=== PATIENT | female | born 1935 | race Two or more races ===

== ENCOUNTER 2018-08-31 22:05 | Emergency (ER) | payer OTHER, MEDICAID ==
[~2018-08-31] VITALS: Ht 152.4 cm; Wt 54.0 kg
[~2018-08-31 22:05] MED LIST: ASPIR 8181 MG ORAL; ATORVASTATIN CA10 MG ORAL; LOSARTAN POTASS50 MG ORAL
[2018-08-31 22:30] VITALS: BP 219/79
--- NOTE | 2018-08-31 22:30 | NUR ---
ED Nurse Note: RECIEVED PT FROM HOME, ON GURNEY, AWAKE, ALERT AND ORIENTED X 4, PT HERE WITH C/O HAVING DIZZINESS YESTERDAY, WAS SEEN BY PMD AT CLINIC, STARTED ON MEDS BUT STATES WHEN TOOK B/P TONIGHT IT REMAINS HIGH, NO DIZZINESS OR CHEST PAIN TODAY, NO SOB OR LABORED BREATHING OR ANY OTHER COMPLAITNS OR DISCOMFORTS, PT GOWNED AND PALCED ON CARDIAC MONITORING, B/P IS ELEVATED, WILL RESUME CARE ORDERED BY MD.
--- NOTE | 2018-08-31 22:54 | Emergency Room Report ---
History of Present Illness General Chief Complaint: Hypertension Source: Patient Present Illness HPI Is an 82-year-old female with history of high blood pressure but just put on blood pressure medication yesterday. She presents with chief complaint of high blood pressure. She complaining of some dizziness and headache and took her blood pressure was high. She call her son to bring her in. Right now she has no pain. No chest pain. No nausea no vomiting. No fever chills but no focal deficit denies any other complaint. Said that her blood pressure home was running systolic 200. She felt nervous. Allergies: Coded Allergies: NO KNOWN ALLERGIES (Unverified Allergy, Unknown, 02/06/15) Patient History Past Medical History: see triage record, old chart reviewed, HTN Past Surgical History: none, other Pertinent Family History: none Social History: Denies: smoking Last Menstrual Period: n/a Now: No Immunizations: other Reviewed Nursing Documentation: PMH: Agreed; PSxH: Agreed Nursing Documentation-PMH Past Medical History: No History, Except For Hx Cardiac Problems: Yes Hx Hypertension: Yes Hx Cancer: No Hx Gastrointestinal Problems: No Hx Neurological Problems: No Review of Systems Eye: Denies: eye pain, blurred vision ENT: Denies: ear pain, nose congestion, throat swelling Respiratory: Denies: cough, shortness of breath Cardiovascular: Denies: chest pain, palpitations Gastrointestinal: Denies: abdominal pain, diarrhea, nausea, vomiting Musculoskeletal: Denies: back pain, joint pain Skin: Denies: rash Neurological: Denies: headache, numbness Endocrine: Denies: increased thirst, increased urine Hematologic/Lymphatic: Denies: easy bruising All Other Systems: negative except mentioned in HPI Physical Exam Vital Signs Date Time Temp Pulse Resp B/P (MAP) Pulse Ox O2 Delivery O2 Flow Rate FiO2 08/31/18 22:14 97.9 81 18 219/79 95 Room Air vitals with high blood pressure Sp02 EP Interpretation: reviewed, normal General Appearance: well appearing, no apparent distress, alert Head: normocephalic, atraumatic Eyes: bilateral eye PERRL, bilateral eye EOMI ENT: hearing grossly normal, normal pharynx Neck: full range of motion, supple, no meningismus Respiratory: chest non-tender, lungs clear, normal breath sounds Cardiovascular #1: regular rate, rhythm, no murmur Gastrointestinal: normal bowel sounds, non tender, no mass, no organomegaly, no bruit, non-distended Musculoskeletal: back normal, gait/station normal, normal range of motion Psychiatric: mood/affect normal Skin: warm/dry Medical Decision Making Diagnostic Impression: Primary Impression: Hypertension Qualified Codes: I10 - Essential (primary) hypertension ER Course Patient presents with high blood pressure. No evidence of endorgan damage. Blood pressure improved here. No evidence of ACS, PE, dissection to name a few. We'll discharge home. Lab Results Impression labs unremarkable Last Vital Signs Date Time Temp Pulse Resp B/P (MAP) Pulse Ox O2 Delivery O2 Flow Rate FiO2 08/31/18 22:30 97.9 74 18 219/79 98 Room Air Status: improved Disposition: HOME, SELF-CARE Condition: Stable Scripts Hydrochlorothiazide* (HYDROCHLOROTHIAZIDE*) 25 Mg Tablet 25 MG ORAL DAILY, #30 TAB Prov: Barry Ricks MD 09/01/18 Additional Instructions: Continue with your lisinopril. Take new blood pressure medication. Follow-up with your doctor in a week for recheck. Return if worse. Barry Ricks MD Aug 31, 2018 22:54
[2018-08-31 22:57] LABS: BASOPHILS % (AUTO) 0.8 % (0.0-2.0); EOSINOPHILS % (AUTO) 2.7 % (0.0-3.0); HEMATOCRIT 33.8 % (37.0-47.0); HEMOGLOBIN 11.2 G/DL (12.0-16.0); LYMPHOCYTES % (AUTO) 24.6 % (20.0-45.0); MEAN CORPUSCULAR VOLUME 91 FL (80-99); MONOCYTES % (AUTO) 8.2 % (1.0-10.0); NEUTROPHILS % (AUTO) 63.8 % (45.0-75.0); PLATELET COUNT 219 K/UL (150-450); RED BLOOD COUNT 3.71 M/UL (4.20-5.40); RED CELL DISTRIBUTION WIDTH 12.2 % (11.6-14.8); WHITE BLOOD COUNT 8.2 K/UL (4.8-10.8)
[2018-08-31 23:06] LABS: ANION GAP 8 mmol/L (5-15); BLOOD UREA NITROGEN 16 mg/dL (7-18); CALCIUM 9.5 MG/DL (8.5-10.1); CARBON DIOXIDE 26 MMOL/L (21-32); CHLORIDE 103 MMOL/L (98-107); POTASSIUM 4.6 MMOL/L (3.5-5.1); SODIUM 137 MMOL/L (136-145)
[2018-08-31 23:30] VITALS: BP 176/41
[2018-08-31 23:35] LABS: APPEARANCE,URINE CLEAR; BILIRUBIN, URINE NEGATIVE (NEGATIVE); COLOR,URINE PALE YELLOW; GLUCOSE, URINE (UA) NEGATIVE (NEGATIVE); KETONES,URINE NEGATIVE (NEGATIVE); LEUKOCYTE ESTERASE ,URINE NEGATIVE (NEGATIVE); NITRITE,URINE NEGATIVE (NEGATIVE); PH,URINE 6.5 (4.5-8.0); PROTEIN,URINE 1+ (NEGATIVE); UROBILINOGEN,URINE NORMAL MG/DL (0.0-1.0)
[2018-09-01] MEDS ORDERED: Ketorolac 30mg Inj IV ONE
[2018-09-01] MEDS ORDERED: HYDROCHLOROTHIA25 MG ORAL (00:05)
[2018-09-01 00:30] VITALS: BP 147/51
--- NOTE | 2018-09-01 00:30 | NUR ---
ED Nurse Note: PT RESTING QUIETLY IN BED,A WAKE AND ALERT, B/P MEDS EFFECTIVE, WNL AND PT HEADACHE RESOLVED, PAIN AT 0/10, PT BEING D/C TO HOME WITH FAMILY, GIVEN F/U INFO AND AFTER CARE INSTRUCTIONS, ALSO RE-VERBALIZES PROPER MEDICATION ADMINISTRATION AND S/S TO MONTIOR FOR, PT LEAVING WITH FAMILY, AMBULATORY, NO SOB OR LABORED BREATHING, DENIES CP, NAD NOTED DURING D/C TO HOME.
--- NOTE | 2018-09-01 00:51 | NUR ---
ED Nurse Note: PT D/C FROM DEPARTMENT, AWAKE, ALERT AND ORIENTED X 4, AMBULATORY WITH STEADY GAIT, NO DIZZINESS, HEADACHE OR CHEST PAIN, NO SOB OR LABORED BREATHING, IV LINE AND ARMBAND REMOVED WITHOUT COMPLICATIONS, NAD NOTED DURING D/C TO HOME.
[2018-09-01 00:52] VITALS: BP 147/51
== END 2018-09-01 00:55 | disposition home or self-care (01) ==
LOC: EMR 22:58
DX: I10 Essential (primary) hypertension (principal)
CPT/HCPCS: 36415; 80048; 81001; 84484; 85025; 96374; 96375; 96376; 99284; J0360; J1885

== ENCOUNTER 2019-09-02 17:30 | Inpatient (IN) | payer OTHER, MEDICAID ==
[~2019-09-02] VITALS: Ht 152.4 cm; Wt 51.7 kg
[~2019-09-02 17:30] MED LIST changes: +HYDROCHLOROTHIA25 MG ORAL
[2019-09-02] MEDS ORDERED: LEVOTHYROXINE75 MCG ORAL (17:49)
[2019-09-02] MEDS ORDERED: HYDROCHLOROTH12.5 MG ORAL (17:49)
[2019-09-02] MEDS ORDERED: MECLIZINE HCL25 MG ORAL (17:49)
[2019-09-02] MEDS ORDERED: CARVEDILOL25 MG ORAL (17:49)
[2019-09-02 17:58] VITALS: BP 193/59
[2019-09-02] MEDS ORDERED: Nitroglycerin 2% oint pkt TOPIC ONE (18:00)
--- NOTE | 2019-09-02 18:04 | Emergency Room Report ---
History of Present Illness General Chief Complaint: Chest Pain Source: Patient (Gerald Vickers MD) Present Illness HPI 84-year-old female history of hypertension history of hypothyroidism, presents with chest pressure worse with activity relieved with rest severity is moderate , ongoing for the past 2 days intermittent lasting minutes patient also endorses some shortness of breath and feeling fatigued patient presents for evaluation (Gerald Vickers MD) Allergies: Coded Allergies: NO KNOWN ALLERGIES (Unverified Allergy, Unknown, 02/06/15) Patient History Past Medical History: see triage record Reviewed Nursing Documentation: PMH: Agreed; PSxH: Agreed (Gerald Vickers MD) Nursing Documentation-PMH Hx Cardiac Problems: Yes - VERTIGO Hx Hypertension: Yes Hx Cancer: No Hx Gastrointestinal Problems: No - HYPOTHYROIDISM Hx Neurological Problems: No (Gerald Vickers MD) Review of Systems All Other Systems: negative except mentioned in HPI (Gerald Vickers MD) Physical Exam Vital Signs Date Time Temp Pulse Resp B/P (MAP) Pulse Ox O2 Delivery O2 Flow Rate FiO2 09/02/19 17:40 98.1 68 19 193/59 (103) 96 Room Air Sp02 EP Interpretation: reviewed, normal General Appearance: well appearing, no apparent distress, alert Head: normocephalic, atraumatic Eyes: bilateral eye PERRL, bilateral eye EOMI ENT: uvula midline, moist mucus membranes Neck: supple, thyroid normal, supple/symm/no masses Respiratory: lungs clear, no respiratory distress, no retraction, no accessory muscle use Cardiovascular #1: normal peripheral pulses, regular rate, rhythm, no edema, no gallop, systolic murmur Gastrointestinal: non tender, soft, no guarding, no rebound Musculoskeletal: normal inspection Neurologic: alert, oriented x3 Psychiatric: mood/affect normal Skin: no rash, warm/dry (Gerald Vickers MD) Medical Decision Making Diagnostic Impression: Primary Impression: Chest pain Qualified Codes: R07.9 - Chest pain, unspecified Additional Impression: Hypertension Qualified Codes: I10 - Essential (primary) hypertension ER Course 84-year-old female presents with chest pain concerning for possible ACS differential diagnosis includes pneumonia, pneumothorax Chest x-ray negative for acute pathology troponin negative, EKG negative Patient given aspirin nitro plan for admission and monitoring Patient to be admitted to telemetry Laboratory Tests Test 09/02/19 18:12 White Blood Count 5.2 K/UL (4.8-10.8) Red Blood Count 3.02 M/UL (4.20-5.40) L Hemoglobin 9.2 G/DL (12.0-16.0) L Hematocrit 26.7 % (37.0-47.0) L Mean Corpuscular Volume 88 FL (80-99) Mean Corpuscular Hemoglobin 30.7 PG (27.0-31.0) Mean Corpuscular Hemoglobin Concent 34.7 G/DL (32.0-36.0) Red Cell Distribution Width 11.8 % (11.6-14.8) Platelet Count 75 K/UL (150-450) L Mean Platelet Volume 8.1 FL (6.5-10.1) Neutrophils (%) (Auto) 29.1 % (45.0-75.0) L Lymphocytes (%) (Auto) 29.5 % (20.0-45.0) Monocytes (%) (Auto) 6.1 % (1.0-10.0) Eosinophils (%) (Auto) 3.8 % (0.0-3.0) H Basophils (%) (Auto) 1.4 % (0.0-2.0) Prothrombin Time 9.7 SEC (9.30-11.50) Prothrombin Time INR 0.9 (0.9-1.1) Activated Partial Thromboplast Time 22 SEC (23-33) L Sodium Level 134 MMOL/L (136-145) L Potassium Level 5.9 MMOL/L (3.5-5.1) H Chloride Level 96 MMOL/L (98-107) L Carbon Dioxide Level 26 MMOL/L (21-32) Anion Gap 12 mmol/L (5-15) Blood Urea Nitrogen 17 mg/dL (7-18) Creatinine 0.8 MG/DL (0.55-1.30) Estimate Glomerular Filtration Rate > 60 mL/min (>60) Glucose Level 99 MG/DL (74-106) Calcium Level 9.7 MG/DL (8.5-10.1) Total Bilirubin 0.4 MG/DL (0.2-1.0) Aspartate Amino Transferase (AST) 33 U/L (15-37) Alanine Aminotransferase (ALT) 21 U/L (12-78) Alkaline Phosphatase 77 U/L (46-116) Troponin I 0.000 ng/mL (0.000-0.056) Pro-B-Type Natriuretic Peptide 346 pg/mL (0-125) H Total Protein 7.3 G/DL (6.4-8.2) Albumin 3.4 G/DL (3.4-5.0) Globulin 3.9 g/dL Albumin/Globulin Ratio 0.9 (1.0-2.7) L Lipase 301 U/L (73-393) (Gerald Vickers MD) ER Course This patient presents with chest pain and hypertension. Pain was atypical and intermittent for the last couple days. She was signed out to me pending admission versus transfer. Transfer is unable to transfer because lack of hospital beds. Patient approved for admission here. I discussed the case with Dr. Guerra for admission. (Barry Ricks MD) EKG Diagnostic Results EKG Time: 18:01 EP Interpretation: NSR, rate 64, QTc 416, no acute ST lesions, left axis deviation (Gerald Vickers MD) Rhythm Strip Diag. Results Rhythm Strip Time: 18:04 EP Interpretation: yes Rate: 64 Rhythm: NSR, no PVC's, no ectopy (Gerald Vickers MD) Chest X-Ray Diagnostic Results Chest X-Ray Diagnostic Results : Chest X-Ray Ordered: Yes # of Views/Limited/Complete: 1 View Indication: Chest Pain EP Interpretation: Yes Interpretation: no consolidation, no effusion, no pneumothorax, no acute cardiopulmonary disease Impression: No acute disease Electronically Signed by: Gerald Vickers MD (Gerald Vickers MD) Last Vital Signs Date Time Temp Pulse Resp B/P (MAP) Pulse Ox O2 Delivery O2 Flow Rate FiO2 09/02/19 17:58 68 19 Room Air 09/02/19 17:58 98.1 193/59 96 (Gerald Vickers MD) Status: improved (Barry Ricks MD) Disposition: ADMITTED INPATIENT Condition: Serious Gerald Vickers MD Sep 02, 2019 18:04 Barry Ricks MD Sep 02, 2019 23:37
[2019-09-02 18:31] LABS: HEMATOCRIT 26.7 % (37.0-47.0); HEMOGLOBIN 9.2 G/DL (12.0-16.0); MEAN CORPUSCULAR VOLUME 88 FL (80-99); PLATELET COUNT 75 K/UL (150-450); RED BLOOD COUNT 3.02 M/UL (4.20-5.40); RED CELL DISTRIBUTION WIDTH 11.8 % (11.6-14.8); WHITE BLOOD COUNT 5.2 K/UL (4.8-10.8)
[2019-09-02 18:34] LABS: BASOPHILS % (AUTO) 1.4 % (0.0-2.0); EOSINOPHILS % (AUTO) 3.8 % (0.0-3.0); LYMPHOCYTES % (AUTO) 29.5 % (20.0-45.0); MONOCYTES % (AUTO) 6.1 % (1.0-10.0); NEUTROPHILS % (AUTO) 29.1 % (45.0-75.0)
[2019-09-02 18:40] LABS: INR 0.9 (0.9-1.1)
[2019-09-02 18:55] LABS: ALANINE AMINOTRANSFERASE 21 U/L (12-78); ALBUMIN 3.4 G/DL (3.4-5.0); ALBUMIN/GLOBULIN RATIO 0.9 (1.0-2.7); ALKALINE PHOSPHATASE 77 U/L (46-116); ANION GAP 12 mmol/L (5-15); ASPARTATE AMINO TRANSFERASE 33 U/L (15-37); BILIRUBIN,TOTAL 0.4 MG/DL (0.2-1.0); BLOOD UREA NITROGEN 17 mg/dL (7-18); CALCIUM 9.7 MG/DL (8.5-10.1); CARBON DIOXIDE 26 MMOL/L (21-32); CHLORIDE 96 MMOL/L (98-107); CREATININE 0.8 MG/DL (0.55-1.30); POTASSIUM 5.9 MMOL/L (3.5-5.1); SODIUM 134 MMOL/L (136-145)
[2019-09-02 21:00] VITALS: BP 157/51
[2019-09-02 23:00] VITALS: BP 170/42
[2019-09-03] VITALS (7 sets, daily range): BP systolic 107–188; BP diastolic 50–93
[2019-09-03] MEDS ORDERED: Lexiscan 0.4mg/5ml syringe IV SCH (06:00)
[2019-09-03] MEDS ORDERED: Lexiscan 0.4mg/5ml syringe IV PRN (07:15)
[2019-09-03] MEDS: Carvedilol 25mg Tab ORAL SCH ×2 (09:00→20:42)
[2019-09-03] MEDS: Losartan 50mg tab ORAL SCH (09:00)
[2019-09-03] MEDS: hydroCHLOROthiazide 12.5mg TAB ORAL SCH (09:00)
[2019-09-03] MEDS: Aspirin Baby 81mg ORAL SCH (09:21)
--- NOTE | 2019-09-03 11:04 | Diagnostic Imaging Report ---
Indication: Dyspnea Comparison: None A single view chest radiograph was obtained. Findings: No definite infiltrate or pulmonary vascular congestion identified. The heart is enlarged. The aorta is mildly enlarged consistent with atherosclerotic vascular disease. The bones are osteopenic. There are thoracic vertebral enthesophytes at multiple levels. Impression: No acute disease
--- NOTE | 2019-09-03 15:45 | History and Physical Report ---
DATE OF ADMISSION: 09/02/2019 HISTORY OF PRESENT ILLNESS: This is an 84-year-old female with a known history of hypertension and hypothyroidism, came to the hospital with chest pain. Yesterday, she reported chest pain; however, this morning she is stating that pain is resolved. She has a nitroglycerin patch in place. The patient unable to provide any other further history. PAST MEDICAL HISTORY: Notable for chronic vertigo, hypertension, hypothyroidism. HOME MEDICATIONS: Includes amlodipine, Coreg, aspirin, hydrochlorothiazide, Synthroid, losartan. REVIEW OF SYSTEMS: She denies any headaches, hematemesis, melena, hematochezia, night sweats, or weight loss. PREVIOUS SURGERIES: None reported. PHYSICAL EXAMINATION: GENERAL: Reveals a 84-year-old female. VITAL SIGNS: Blood pressure earlier was 180/60, this morning is 120/50, heart rate 74, afebrile. HEENT: Unremarkable. LUNGS: Clear breath sounds bilaterally. HEART: Normal heart sounds. S1 and S2 without murmurs, rubs, or clicks. ABDOMEN: Soft. EXTREMITIES: There is no edema. NEUROLOGIC: Nonfocal. LABORATORY AND DIAGNOSTIC DATA: Normal CBC and BMP with exception of hemoglobin 9.2 and potassium 5.9. Troponin negative x3. Coags are negative. Per ER reporting, x-ray chest is negative. EKG showed normal sinus rhythm. IMPRESSION: 1. Anemia, likely chronic. 2. Chest pain. 3. Hypertension. DISCUSSION: Admitted to the hospital. We will obtain cardiac stress test. We will consult Cardiology. Continue home medications. We will follow up. Swapnil Guerra M.D. DR: Ricci JOB#: [id number] CC:
[2019-09-03 16:13] LABS: ANION GAP 11 mmol/L (5-15); BLOOD UREA NITROGEN 16 mg/dL (7-18); CALCIUM 9.4 MG/DL (8.5-10.1); CARBON DIOXIDE 27 MMOL/L (21-32); CHLORIDE 98 MMOL/L (98-107); CREATININE 1.1 MG/DL (0.55-1.30); POTASSIUM 5.2 MMOL/L (3.5-5.1); SODIUM 136 MMOL/L (136-145)
--- NOTE | 2019-09-03 16:31 | Diagnostic Imaging Report ---
Indication: chest pain Technique: The study was conducted under the supervision of a psychologist developmental. lexiscan (regadenoson) infusion over 10 seconds followed by intravenous administration of 32.3 mCi of technetium 99m Myoview was performed. Three plane SPECT imaging of the heart was then performed. A resting study was performed as part of the one-day protocol with 10.9 mCi of technetium 99m myoview injected intravenously at that time. Three plane SPECT imaging of the heart was obtained. Comparison: None Clinical data: 1. Clinical response: Ischemic. Patient had chest pain 2. Electrocardiographic response: Non ischemic Findings: The myocardial perfusion scan demonstrates LVEF 75%. No fixed or reversible perfusion defects are identified. IMPRESSION: No scintigraphic evidence for myocardial ischemia. Patient had chest pain during pharmacological infusion which was interpreted as ischemic clinical response. Please refer to the cardiology notes. Note: Estimation of LVEF on this examination is likely inaccurate. In our experience, the calculated LVEF is usually overestimated on this software program.
[2019-09-04] VITALS: BP 113/49
[2019-09-04 04:00] VITALS: BP 106/48
--- NOTE | 2019-09-04 07:00 | Consultation ---
DATE OF CONSULTATION: 09/02/2019 CARDIOLOGY CONSULTATION CONSULTING PHYSICIAN: Nir Gracia M.D. REQUESTING PHYSICIAN: Swapnil Guerra M.D. REASON FOR CONSULTATION: Chest pain. HISTORY OF PRESENT ILLNESS: This is an 84-year-old female. She has several risk factors for premature coronary disease. She has had chest pain over the past two days associated with activity and resolving with rest and pain last for several minutes and associated with some shortness of breath. Her initial workup in the emergency room was notable for an elevated blood pressure reading. Her EKG revealed sinus rhythm with nonspecific ST changes and her troponin level was negative. PAST MEDICAL HISTORY: Hypertension, history of vertigo, hypothyroidism. ALLERGIES: No allergies. MEDICATIONS: Reviewed and reconciled. FAMILY HISTORY: Noncontributory. SOCIAL HISTORY: Nonsmoker. No alcohol or substance abuse. REVIEW OF SYSTEMS: A 10-point review of systems performed, all systems negative other than noted above. PHYSICAL EXAMINATION: VITAL SIGNS: Blood pressure in the emergency room 193/59, heart rate 68, respiratory rate 19, afebrile. Subsequently, blood pressure 170/42, pulse 60, respirations 16, and afebrile. LUNGS: Clear. NECK: Jugular venous pressure normal. CARDIAC: Regular rhythm and rate. Normal S1, S2 with a fourth heart sound. ABDOMEN: Soft. EXTREMITIES: No edema. IMPRESSION: 1. Acute coronary insufficiency. 2. Hypertensive urgency. 3. Acute diastolic congestive heart failure secondary to above. 4. Hyperkalemia. 5. Hyponatremia. PLAN: 1. Kayexalate, anti-platelet therapy, beta blockade, low-dose diuretic, thyroid panel. 2. Discontinue losartan if elevated potassium persist. 3. Serial troponin levels followed by noninvasive assessment of coronary flow reserve. Nir Gracia M.D. DR: IVAN JOB#: [id number] CC:
--- NOTE | 2019-09-04 07:15 | Progress Note ---
DATE: 09/03/2019 CARDIOLOGY PROGRESS NOTE SUBJECTIVE: No chest pain. No shortness of breath. Some discomfort during stress test. Blood pressure parameters have improved. Monitored rhythm, sinus with no ectopy. PHYSICAL EXAMINATION: VITAL SIGNS: Blood pressure 139/61, pulse 83, respirations 20. LUNGS: Clear. CARDIAC: Regular. Normal S1, S2 with a fourth heart sound. ABDOMEN: Soft. EXTREMITIES: No edema. DIAGNOSTIC AND LABORATORY DATA: Myocardial perfusion scan with normal perfusion and ejection fraction. Venous duplex negative for DVT. Troponin is negative. Potassium remains slightly elevated at 5.2. IMPRESSION: 1. Microvascular angina, low likelihood for flow-limiting coronary disease. 2. Labile hypertension now with improved blood pressure control. 3. Hyperkalemia. PLAN: 1. Continue potassium. 2. We are requiring losartan to be discontinued. 3. Maintain anti-platelet therapy and beta-oly. 4. Outpatient lipid evaluation. 5. No additional cardiovascular intervention. 6. Followup chemistry panel. Nir Gracia M.D. DR: IVAN JOB#: [id number] CC:
[2019-09-04 07:55] LABS: ANION GAP 1 mmol/L (5-15); BLOOD UREA NITROGEN 25 mg/dL (7-18); CALCIUM 9.2 MG/DL (8.5-10.1); CARBON DIOXIDE 29 MMOL/L (21-32); CHLORIDE 97 MMOL/L (98-107); CHOLESTEROL 188 MG/DL (< 200); CREATININE 1.1 MG/DL (0.55-1.30); HDL CHOLESTEROL 91 MG/DL (40-60); SODIUM 127 MMOL/L (136-145); TRIGLYCERIDES 38 MG/DL (30-150)
[2019-09-04 08:00] VITALS: BP 118/48
[2019-09-04] MEDS: Carvedilol 25mg Tab ORAL SCH ×2 (08:58→11:47)
[2019-09-04] MEDS: Losartan 50mg tab ORAL SCH ×2 (08:59→11:46)
[2019-09-04] MEDS: hydroCHLOROthiazide 12.5mg TAB ORAL SCH ×2 (08:59→11:46)
[2019-09-04] MEDS: Aspirin Baby 81mg ORAL SCH (09:01)
--- NOTE | 2019-09-04 10:27 | Pulmonology Progress Note ---
Assessment/Plan Assessment/Plan IMPRESSION: 1. Anemia, likely chronic. 2. Chest pain. No perfusion defects on nuclear stress test 3. Hypertension. DISCUSSION: A Continue home medications. Will dc home Swapnil Guerra M.D. Subjective Interval Events: Myocardial perfusion scan negative for ischemia Constitutional: Reports: no symptoms HEENT: Repors: no symptoms Respiratory: Reports: no symptoms Cardiovascular: Reports: no symptoms Allergies: Coded Allergies: NO KNOWN ALLERGIES (Unverified Allergy, Unknown, 02/06/15) Objective Last 24 Hour Vital Signs Date Time Temp Pulse Resp B/P (MAP) Pulse Ox O2 Delivery O2 Flow Rate FiO2 09/04/19 08:59 109/40 09/04/19 08:58 63 109/40 09/04/19 08:00 99.0 70 18 118/48 (71) 96 09/04/19 06:00 63 74 70 09/04/19 04:00 97.9 67 20 106/48 (67) 97 09/04/19 04:00 63 09/04/19 00:00 97.5 61 20 113/49 (70) 100 09/04/19 00:00 67 09/03/19 21:00 Room Air 09/03/19 20:42 83 139/61 09/03/19 20:00 97.9 83 20 139/61 (87) 96 09/03/19 20:00 86 09/03/19 16:00 70 09/03/19 16:00 97.3 74 20 135/93 (107) 94 09/03/19 12:00 92 09/03/19 12:00 98.1 71 18 137/59 (85) 96 Intake and Output 09/03/19 09/04/19 19:00 07:00 Intake Total 140 ml 140 ml Output Total 1200 ml 1200 ml Balance -1060 ml -1060 ml Intake Oral 140 ml 140 ml Output Urine Total 1200 ml 1200 ml # Voids 3 3 # Bowel Movements 2 General Appearance: no acute distress HEENT: normocephalic Respiratory/Chest: chest wall non-tender Cardiovascular: normal peripheral pulses Abdomen: normal bowel sounds Laboratory Tests 09/03/19 12:00: Troponin I 0.001 09/03/19 15:25: Sodium Level 136, Potassium Level 5.2H, Chloride Level 98, Carbon Dioxide Level 27, Anion Gap 11, Blood Urea Nitrogen 16, Creatinine 1.1, Estimat Glomerular Filtration Rate 47.3, Glucose Level 154H, Calcium Level 9.4 09/03/19 20:20: Troponin I 0.016 09/04/19 05:17: Sodium Level 127L, Potassium Level 5.0, Chloride Level 97L, Carbon Dioxide Level 29, Anion Gap 1L, Blood Urea Nitrogen 25H, Creatinine 1.1, Estimat Glomerular Filtration Rate 47.3, Glucose Level 117H, Calcium Level 9.2, Triglycerides Level 38, Cholesterol Level 188, LDL Cholesterol 93, HDL Cholesterol 91H, Cholesterol/HDL Ratio 2.1L Current Medications Medications (Trade) Dose Ordered Sig/Yelena Route PRN Reason Start Time Stop Time Status Last Admin Dose Admin Aspirin (ASA) 81 mg DAILY ORAL 09/03/19 09:00 10/03/19 08:59 09/04/19 09:01 Carvedilol (Coreg) 25 mg EVERY 12 HOURS ORAL 09/03/19 09:00 10/03/19 08:59 09/03/19 20:42 Hydrochlorothiazide (Hydrodiuril) 12.5 mg DAILY ORAL 09/03/19 09:00 10/03/19 08:59 Levothyroxine Sodium (Synthroid) 75 mcg DAILY@0630 ORAL 09/03/19 06:30 10/03/19 06:29 09/04/19 06:15 Losartan Potassium (Cozaar) 50 mg DAILY ORAL 09/03/19 09:00 10/03/19 08:59 Ondansetron HCl (Zofran) 4 mg Q6H PRN IVP Nausea & Vomiting 09/03/19 23:00 10/03/19 22:59 Regadenoson (Lexiscan) 0.4 mg ONCE PRN IV STRESS TEST 09/03/19 07:15 09/05/19 07:14 09/03/19 11:51 Swapnil Guerra MD Sep 04, 2019 10:27
[2019-09-04 11:41] VITALS: BP 139/57
[2019-09-04 11:47] VITALS: BP 139/57
--- NOTE | 2019-09-05 04:15 | Progress Note ---
DATE: 09/04/2019 CARDIOLOGY PROGRESS NOTE SUBJECTIVE: No new chest pain. Blood pressure parameters well-controlled. Monitored rhythm sinus with no ectopy. Cardiac perfusion scan was discussed yesterday revealed normal ejection fraction and perfusion. OBJECTIVE: VITAL SIGNS: Blood pressure 118/48, pulse 70, respirations 18, and T-max 99. LUNGS: Clear. CARDIAC: Regular. ABDOMEN: Soft. EXTREMITIES: No edema. IMPRESSION: 1. Noncardiac chest pain. 2. Low likelihood for flow-limiting coronary disease. 3. Chronic anemia. 4. Hypertension with hypertensive heart disease and labile BP. PLAN: 1. Stable for outpatient followup. 2. Current medication regimen adequate. 3. No additional cardiovascular workup presently indicated. Nir Gracia M.D. DR: AGUS JOB#: [id number] CC: MESSI
--- NOTE | 2019-09-06 08:24 | Discharge Summary ---
Discharge Summary Discharge Summary _ DATE OF ADMISSION: 09/02/2019 DATE OF DISCHARGE: 09/04/2019 DISCHARGED BY: Dr. Guerra REASON FOR ADMISSION: 84 years old female with past medical history of hypertension, hypothyroidism, chronic vertigo, presented to the hospital complaining of chest pain Chest pain was reported as intermittent for the past 2 days, lasting few minutes. Patient also endorsed some shortness of breath and feeling of fatigue. Upon evaluation blood pressure was elevated 193/59, otherwise vital signs were stable. Laboratory work-up revealed anemia with hemoglobin 9.2,, hematocrit 26.7, platelet count 75, no leukocytosis. Potassium 5.9. Stable renal parameters. Glucose 99. Troponin negative, pro BNP 346 . ECG revealed sinus rhythm, no acute ischemic changes . Chest x-ray revealed no acute cardiopulmonary pathology. Patient received aspirin and nitroglycerin and admitted to telemetry floor for further management CONSULTANTS: home care music therapist [facility] COURSE: Patient admitted to telemetry floor. Serial troponin were negative. EKG revealed no acute ischemic changes. Telemetry demonstrated sinus rhythm Patient was ruled out for acute myocardial infarction. Patient subsequently undergone myocardial perfusion scan test, which revealed no evidence of fixed or reversible perfusion defect. Calculated poststress ejection fraction estimated to be 75%. Per home care music therapist , chest pain was noncardiac. Patient had l microvascular angina but with low likelihood for flow-limiting coronary disease. Antihypertensive medication regimen was optimized to bring blood pressure under control. Blood pressure stabilized. Patient was continued on antiplatelet with aspirin. Lipid panel was stable. Synthroid continued. Supportive care provided. Hyperkalemia treated and resolved. Patient clinically stabilized and was ready for discharge home. 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 DISCHARGE INSTRUCTIONS: Patient was discharged home. Follow-up with primary care provider in 1 week. I have been assigned to dictate discharge summary for this account. I was not involved in the patient's management. Citlaly Guzman NP Sep 06, 2019 08:24
--- NOTE | 2019-09-07 12:36 | Coder Physician Query ---
Clarification is required for compliance, coding accuracy, and to reflect severity of illness for this patient Dear Dr. Swapnil Guerra Date: 09/07/2019 Director Digital Advertising/CDS' Name: Jamie JULIETA HISTORY OF PRESENT ILLNESS: This is an 84-year-old female with a known history of hypertension and hypothyroidism, came to the hospital with chest pain. Troponin negative, pro BNP 346 . ECG revealed sinus rhythm, no acute ischemic changes . Chest x-ray revealed no acute cardiopulmonary pathology. Patient subsequently undergone myocardial perfusion scan test, which revealed no evidence of fixed or reversible perfusion defect. Calculated poststress ejection fraction estimated to be 75%. FINAL DIAGNOSES: Noncardiac chest pain Please document the suspected etiology of Chest Pain: [] Acute Coronary Syndrome [] Pericarditis [] Anxiety [] Cancer [] Pneumonia [] Costochondritis [] Pneumothorax [] GERD/Esophagitis [] Pulmonary embolism [] Other: [] Unable to determine SWAPNIL GUERRA M.D. Date Please also document in your Progress Notes and/or Discharge Summary and indicate if the condition was present on admission. ALBERTD
== END 2019-09-04 14:58 | disposition home or self-care (01) | DRG 313 ==
LOC: EMR 18:31 → 2W 21:30 → EDBEDREQ 23:58 → 2E 09-03 06:31
DX: R07.89 Other chest pain (principal); E87.1 Hypo-osmolality and hyponatremia; I10 Essential (primary) hypertension; E03.9 Hypothyroidism, unspecified; Z79.82 Long term (current) use of aspirin; D64.9 Anemia, unspecified; I20.8 Other forms of angina pectoris; I11.0 Hypertensive heart disease with heart failure; E87.5 Hyperkalemia; I16.0 Hypertensive urgency
CPT/HCPCS: 36415; 71045; 78452; 80048; 80053; 80061; 83690; 83880; 84484; 85025; 85610; 85730; 93005; 93017; 93970; 99285; J2785

== ENCOUNTER 2020-07-24 08:40 | Inpatient (IN) | payer OTHER, MEDICAID ==
[~2020-07-24] VITALS: Ht 152.4 cm; Wt 55.8 kg
--- NOTE | 2020-07-24 07:05 | NUR ---
NURSE HAND-OFF REPORT: Important Events on Shift:new admit Patient Status: stable Diet: regular Pending Orders: n/a Pending Results/Labs:n/a Pending MD notification:n/a Latest Vital Signs: Temperature 98.2 , Pulse 79 , B/P 132 /70 , Respiratory Rate 15 , O2 SAT 99 , Room Air, O2 Flow Rate . Vital Sign Comment: stable EKG Rhythm: Sinus Rhythm Rhythm change?: MD Notified?: - MD Response: Latest Drake Fall Score: 15 Fall Risk: Safety Measures: Call light , Bed Alarm , Side Rails , Bed position . Fall Precautions: Report given to RONNIE RN and BERENICE Hall.
[~2020-07-24 08:40] MED LIST changes: +CARVEDILOL25 MG ORAL; +HYDROCHLOROTH12.5 MG ORAL; +LEVOTHYROXINE75 MCG ORAL; +MECLIZINE HCL25 MG ORAL
[2020-07-24 09:00] VITALS: BP 191/56
--- NOTE | 2020-07-24 09:00 | NUR ---
ED Nurse Note: Pt walked in frmo home c/o left sided chest pain radiating to right upper back that started yesterday morning. Pt also reports her blood pressure being high at home and c/o dizziness. BP elevated in the 190s systolic. Respirations even and unlabored on room air. Vitals stable as documented. A+Ox4, speaking in complete sentences.
--- NOTE | 2020-07-24 09:05 | Emergency Room Report ---
History of Present Illness General Chief Complaint: dizziness Source: Patient Present Illness HPI Patient is an 85-year-old female presents for increased dizziness as well as intermittent chest discomfort. Reports having onset of symptoms yesterday. Denies any shortness of breath or cough. Prior history of hypertension as well as diabetes. Reports of increased generalized weakness. Denies any vomiting or diarrhea. Reports feeling more weak all over. Denies any increased leg swelling.Patient had previous hospitalization in September. And had previous nuclear testing which showed no radiographic perfusion defects. Previous MRI of the brain showed nonspecific changes without evidence of CVA. Allergies: Coded Allergies: NO KNOWN ALLERGIES (Unverified Allergy, Unknown, 02/06/15) Patient History Past Medical History: see triage record Reviewed Nursing Documentation: PMH: Agreed; PSxH: Agreed Nursing Documentation-PMH Hx Cardiac Problems: Yes - VERTIGO Hx Hypertension: Yes Hx Cancer: No Hx Gastrointestinal Problems: No - HYPOTHYROIDISM Hx Neurological Problems: No Review of Systems All Other Systems: negative except mentioned in HPI Physical Exam Sp02 EP Interpretation: reviewed, normal General Appearance: normal inspection, well appearing, no apparent distress, alert, GCS 15, mild distress Head: atraumatic ENT: normal ENT inspection, hearing grossly normal, normal voice Neck: normal inspection, full range of motion, supple, no bony tend Respiratory: normal inspection, lungs clear, normal breath sounds, no respiratory distress, no retraction, no wheezing Cardiovascular #1: regular rate, rhythm, no edema Gastrointestinal: normal inspection, normal bowel sounds, non tender, soft, no guarding, no hernia Genitourinary: no CVA tenderness Musculoskeletal: normal inspection, back normal, normal range of motion Neurologic: alert, motor strength/tone normal, 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 Differential diagnosis include was not limited to pneumonia, CHF, myocardial infarction among others. Because of complexity of patient's case laboratory tests and imaging studies were ordered. EKG interpreted by me showed normal sinus rhythm with a rate of [address] or T wave changes noted. Patient was given nitroglycerin as well as aspirin. She was given Vasotec. Patient chest x-ray shows vascular congestion consistent with mild CHF. Patient's BNP was elevated and troponin was negative. Patient was discussed with Dr. Guerra who agreed to admit the patient Labs Test 07/24/20 09:15 07/24/20 09:30 07/24/20 10:00 White Blood Count 7.2 K/UL (4.8-10.8) Red Blood Count 3.49 M/UL (4.20-5.40) Hemoglobin 10.5 G/DL (12.0-16.0) Hematocrit 32.5 % (37.0-47.0) Mean Corpuscular Volume 93 FL (80-99) Mean Corpuscular Hemoglobin 30.0 PG (27.0-31.0) Mean Corpuscular Hemoglobin Concent 32.3 G/DL (32.0-36.0) Red Cell Distribution Width 12.7 % (11.6-14.8) Platelet Count 243 K/UL (150-450) Mean Platelet Volume 8.0 FL (6.5-10.1) Neutrophils (%) (Auto) 74.1 % (45.0-75.0) Lymphocytes (%) (Auto) 17.5 % (20.0-45.0) Monocytes (%) (Auto) 5.5 % (1.0-10.0) Eosinophils (%) (Auto) 2.3 % (0.0-3.0) Basophils (%) (Auto) 0.7 % (0.0-2.0) Prothrombin Time 10.5 SEC (9.30-11.50) Prothromb Time International Ratio 0.9 (0.9-1.1) Activated Partial Thromboplast Time 28 SEC (23-33) Urine Color Yellow Urine Appearance Slightly cloudy Urine pH 6 (4.5-8.0) Urine Specific [place] 1.015 (1.005-1.035) Urine Protein 3+ (NEGATIVE) Urine Glucose (UA) Negative (NEGATIVE) Urine Ketones Negative (NEGATIVE) Urine Blood Negative (NEGATIVE) Urine Nitrite Negative (NEGATIVE) Urine Bilirubin Negative (NEGATIVE) Urine Urobilinogen Normal MG/DL (0.0-1.0) Urine Leukocyte Esterase 1+ (NEGATIVE) Urine RBC 0-2 /HPF (0 - 2) Urine WBC 5-10 /HPF (0 - 2) Urine Squamous Epithelial Cells Moderate /LPF (NONE/OCC) Urine Bacteria Moderate /HPF (NONE) Troponin I 0.000 ng/mL (0.000-0.056) Lactic Acid Level 1.30 mmol/L (0.4-2.0) Sodium Level 132 MMOL/L (136-145) Potassium Level 4.6 MMOL/L (3.5-5.1) Chloride Level 100 MMOL/L (98-107) Carbon Dioxide Level 23 MMOL/L (21-32) Anion Gap 9 mmol/L (5-15) Blood Urea Nitrogen 15 mg/dL (7-18) Creatinine 0.9 MG/DL (0.55-1.30) Estimat Glomerular Filtration Rate 59.5 mL/min (>60) Glucose Level 137 MG/DL (74-106) Calcium Level 9.2 MG/DL (8.5-10.1) Total Bilirubin 0.1 MG/DL (0.2-1.0) Aspartate Amino Transf (AST/SGOT) 40 U/L (15-37) Alanine Aminotransferase (ALT/SGPT) 62 U/L (12-78) Alkaline Phosphatase 76 U/L (46-116) C-Reactive Protein, Quantitative < 0.4 mg/dL (0.00-0.90) Pro-B-Type Natriuretic Peptide 1876 pg/mL (0-125) Total Protein 6.6 G/DL (6.4-8.2) Albumin 3.1 G/DL (3.4-5.0) Globulin 3.5 g/dL Albumin/Globulin Ratio 0.9 (1.0-2.7) EKG Diagnostic Results Rate: normal Rhythm: NSR ST Segments: no acute changes Status: unchanged Disposition: ADMITTED INPATIENT Condition: Stable Scripts Furosemide* (LASIX*) 20 Mg Tablet 20 MG ORAL DAILY for 30 Days, #30 TAB Prov: Swapnil Guerra MD 07/26/20 Levothyroxine Sodium* (SYNTHORID*) 75 Mcg Tablet 75 MCG ORAL DAILY@0630 for 30 Days, #30 TAB Take in the morning on an empty stomach, at least 30 minutes before food. Prov: Swapnil Guerra MD 07/26/20 Carvedilol (Coreg) 25 Mg Tablet 25 MG ORAL EVERY 12 HOURS for 30 Days, #60 TAB Prov: Swapnil Guerra MD 07/26/20 Atorvastatin (Lipitor) 80 Mg Tablet 80 MG ORAL BEDTIME for 30 Days, #30 TAB Prov: Swapnil Guerra MD 07/26/20 Liborio Art MD Jul 24, 2020 09:05
[2020-07-24 09:27] LABS: APPEARANCE,URINE SLIGHTLY CLOUDY; BILIRUBIN, URINE NEGATIVE (NEGATIVE); GLUCOSE, URINE (UA) NEGATIVE (NEGATIVE); KETONES,URINE NEGATIVE (NEGATIVE); LEUKOCYTE ESTERASE ,URINE 1+ (NEGATIVE); NITRITE,URINE NEGATIVE (NEGATIVE); PH,URINE 6 (4.5-8.0); PROTEIN,URINE 3+ (NEGATIVE); UROBILINOGEN,URINE NORMAL MG/DL (0.0-1.0)
[2020-07-24 09:29] LABS: BASOPHILS % (AUTO) 0.7 % (0.0-2.0); EOSINOPHILS % (AUTO) 2.3 % (0.0-3.0); HEMATOCRIT 32.5 % (37.0-47.0); HEMOGLOBIN 10.5 G/DL (12.0-16.0); LYMPHOCYTES % (AUTO) 17.5 % (20.0-45.0); MEAN CORPUSCULAR VOLUME 93 FL (80-99); MONOCYTES % (AUTO) 5.5 % (1.0-10.0); NEUTROPHILS % (AUTO) 74.1 % (45.0-75.0); PLATELET COUNT 243 K/UL (150-450); RED BLOOD COUNT 3.49 M/UL (4.20-5.40); RED CELL DISTRIBUTION WIDTH 12.7 % (11.6-14.8); WHITE BLOOD COUNT 7.2 K/UL (4.8-10.8)
[2020-07-24 09:33] LABS: COLOR,URINE YELLOW
[2020-07-24 09:41] LABS: INR 0.9 (0.9-1.1)
[2020-07-24] MEDS ORDERED: cefTRIAXone 1 GM in NS 55 ML IVPB ONE (09:45)
[2020-07-24] MEDS: Enalaprilat 2.5mg/2ml Inj IV ONE ×2 (10:15→12:18)
--- NOTE | 2020-07-24 10:26 | NUR ---
ED Nurse Note: Rechecked pt's bp. Now in the 160s systolic. per ED MD, hold vasotec for now.
--- NOTE | 2020-07-24 10:47 | Diagnostic Imaging Report ---
Indication: Dizziness Technique: Continuous helical CT scanning of the head was performed utilizing automated exposure control without intravenous contrast material. Axial and coronal reconstructions were obtained. Comparison: Correlation made to prior MRI of the brain 02/06/2015 CT dose: Total DLP 992.1 mGycm; CTDI vol 53.4 mGy Findings: There is no acute intracranial hemorrhage, mass effect or cortical edema. The ventricles, cisterns and sulci are prominent consistent with atrophy. Periventricular hypoattenuation is seen, a nonspecific finding. Visualized mastoid air cells and paranasal sinuses are unremarkable. No focal lesions of the bony calvarium or soft tissues of the scalp are seen. IMPRESSION: No evidence of acute intracranial hemorrhage, mass effect or cortical edema. MRI recommended for more sensitive evaluation as clinically indicated. Atrophy and nonspecific periventricular hypoattenuation suggestive of chronic ischemic microvascular changes. The CT scanner at [facility] is accredited by the [employer] [employer] and the scans are performed using protocols designed to limit radiation exposure to as low as reasonably achievable to attain images of sufficient resolution adequate for diagnostic evaluation.
--- NOTE | 2020-07-24 10:49 | Diagnostic Imaging Report ---
Indication: Dizziness Technique: XRAY Chest 1v Comparison: 09/02/2019 Findings: Patient is rotated to the right. Heart size and mediastinal contours are stable For differences in patient positioning. There is vascular/interstitial prominence which may be artifactual related to somewhat low lung volumes. No dense consolidation. No pleural effusion or pneumothorax. No appreciable acute osseous abnormality. IMPRESSION: Limited exam due to low lung volumes and patient rotation. Apparent vascular/interstitial prominence which may potential be artifactual. Possibility of mild congestive changes or early interstitial infiltrate not excluded. Correlation with clinical findings recommended.
[2020-07-24 10:59] LABS: ANION GAP 9 mmol/L (5-15); BLOOD UREA NITROGEN 15 mg/dL (7-18); CALCIUM 9.2 MG/DL (8.5-10.1); CARBON DIOXIDE 23 MMOL/L (21-32); CHLORIDE 100 MMOL/L (98-107); CREATININE 0.9 MG/DL (0.55-1.30); POTASSIUM 4.6 MMOL/L (3.5-5.1); SODIUM 132 MMOL/L (136-145)
[2020-07-24 11:03] LABS: ALANINE AMINOTRANSFERASE 62 U/L (12-78); ALBUMIN 3.1 G/DL (3.4-5.0); ALBUMIN/GLOBULIN RATIO 0.9 (1.0-2.7); ALKALINE PHOSPHATASE 76 U/L (46-116); ASPARTATE AMINO TRANSFERASE 40 U/L (15-37); BILIRUBIN,TOTAL 0.1 MG/DL (0.2-1.0)
[2020-07-24] MEDS ORDERED: Aspirin Baby 81mg ORAL ONE (11:15)
[2020-07-24] MEDS ORDERED: Nitroglycerin 2% oint pkt TOPIC ONE (11:15)
[2020-07-24 11:44] VITALS: BP 143/42
[2020-07-24] MEDS ORDERED: Enalaprilat 2.5mg/2ml Inj IV ONE (12:17)
--- NOTE | 2020-07-24 12:25 | NUR ---
ED Nurse Note: per Dr. Art, okay to give Vasotec now that BP is in the 190s systolic again. BERENICE Duenas made aware
[2020-07-24 13:44] VITALS: BP 141/44
--- NOTE | 2020-07-24 13:44 | NUR ---
ED Nurse Note: Patient resting on bed with no distress. Speaks in full sentences. Will continue to closely monitor patient.
[2020-07-24 15:30] VITALS: BP 100/69
--- NOTE | 2020-07-24 16:00 | History & Physical ---
History and Physical History & Physicial Attending physician: Dr. Guerra Reason for admission: Dizziness and chest discomfort, hypertension HPI: This is an 85-year-old female with past medical history of hypertension, and diabetes mellitus, who presented to the ED for evaluation of worsening dizziness and chest discomfort x1 day. She denies shortness of breath or cough. She reports associated fatigue. Of note, previous nuclear testing showed no radiographic perfusion defects. Previous MRI of the brain showed nonspecific changes without evidence of CVA. EKG showed normal sinus rhythm without acute ST or T wave changes. Patient was given nitroglycerin as well as aspirin. She was also given Vasotec. Chest x-ray showed vascular/interstitial prominence which may be artifacts. No dense consolidation, pleural effusion, or pneumothorax. Patient tested negative for COVID-19 in the ER via rapid gene assay test. Her head CT revealed no evidence of acute intracranial hemorrhage, mass-effect or cortical edema. Her initial systolic blood pressure was in the 190s. Now it is down to 140s. Troponin was negative. Her BNP is elevated at 1876. Patient received Vasotec, nitroglycerin, aspirin, and Rocephin in the ER and is awaiting admission. PMHx: Hypertension, diabetes mellitus Meds: Aspirin, carvedilol, hydrochlorothiazide, levothyroxine, losartan, meclizine Allergies: No known allergies FHx: Unknown Personal/Social Hx: Patient lives at home ROS: Negative except mentioned in HPI PE: VS: BP 141/44, HR 78, RR 15, wt 153 kg, ht 152 cm General: Patient laying in bed, NAD, on room air with normal work of breathing HEENT: Head examination reveals that the head is normocephalic, atraumatic without deformity or unusual swelling. Pupils are round, reactive to light and accommodation normally. There is no nystagmus, lid lag or exophthalmos. Nasal mucosa is pink. Vision is normal. Chest and Lung: Reveals clear, normal, symmetrical breath sounds with no adventitious sound. Expansion is normal. There are no surgical scars. Cardiovascular: Reveals normal S1, S2 without murmurs, rubs or clicks Abdomen: Soft with no tenderness or organomegaly Rectal: Deferred Musculoskeletal: There is no tenderness to palpation. Range of motion is normal Neurological: Cranial nerves II to XII are intact. Gait is normal without ataxia. DTRs are normal. Babinski is downgoing. Laboratory data: Lab testing shows Hgb 10.5, hematocrit 32.5 Chemistries sodium 132 Urinalysis shows 3+ protein, 1+ leuk esterase, moderate number of urine bacteria Impression and recommendation: 1. Diabetes mellitus with hyperglycemia - Monitor BG - Insulin 2. Transaminitis - trend AST, ALT 3. Elevated BNP -We will get cardio consult - will need 2D Echo - We will add lasix 4. Hyponatremia - IVF We will continue home medications The care for this patient was discussed with my supervising physician. Time spent for this case was approximately 31 minutes. Suman Roldan Jul 24, 2020 16:00
[2020-07-24] MEDS: NovoLOG Insulin Flexpen SUBQ SCH ×2 (16:30→21:00)
--- NOTE | 2020-07-24 17:17 | NUR ---
Note jarad in EDM - 07/24/20 at 1718 by SARAH ED Nurse Note: Dinner at the bed side. Pt consumed 505 at this time. No acute distress.
--- NOTE | 2020-07-24 17:17 | NUR ---
ED Nurse Note: Dinner at the bed side. Pt consumed 505 at this time. No acute distress.
--- NOTE | 2020-07-24 17:18 | NUR ---
ED Nurse Note: Dinner at the bed side. Pt consumed 50% at this time. No acute distress.
--- NOTE | 2020-07-24 18:28 | NUR ---
ED Nurse Note: Report given to Bhaskar NG of telemetry unit.
--- NOTE | 2020-07-24 18:40 | NUR ---
ED Nurse Note: Patient transferred to telemetry unit with all her belongings and endorsed care to Bhaskar NG.
--- NOTE | 2020-07-24 18:48 | NUR ---
NURSE NOTES: Received pt from ED. pt is alert and awake. oriented x3, verbally responsive. pt is able to make needs known. denies any chest pain, dizziness and discomfort. placed on heart monitor; bed locked. Alarm is on because pt is a fall risk and has unsteady gait. pt brought belongings; has one denture on her lower jaw. inventory signed. pt is made comfortable in bed. placed call light within reach.
--- NOTE | 2020-07-24 19:05 | NUR ---
NURSE HAND-OFF REPORT: Important Events on Shift:New admit Patient Status: stable Diet: regular Pending Orders: n/a Pending Results/Labs:n/a Pending MD notification:n/a Latest Vital Signs: Temperature 98.2 , Pulse 79 , B/P 132 /70 , Respiratory Rate 15 , O2 SAT 99 , Room Air, O2 Flow Rate . Vital Sign Comment: stable EKG Rhythm: Sinus Rhythm Rhythm change?: MD Notified?: - MD Response: Latest Drake Fall Score: 15 Fall Risk: Safety Measures: Call light , Bed Alarm , Side Rails , Bed position . Fall Precautions: Report given to RONNIE RN and BERENICE Hall..
--- NOTE | 2020-07-24 19:25 | NUR ---
NURSE NOTES: Patient received from Bhaskar NG. Patient a&o x 3. Patient is ambulatory, macedonian speaking. IV site patent and intact 20G right AC SL. No s/s of pain and no s/s of respiratory distress. Called primary MD for orders. awaiting call back. Medications brought down to pharmacy. Bed in lowest position and locked. Bed alarm on.
[2020-07-24 20:00] VITALS: BP 158/54
--- NOTE | 2020-07-24 22:30 | NUR ---
NURSE NOTES: Receive admission orders from Dr. Guerra. Read back orders. Order noted and carried out. Pt is asleep without distress. Will continue to monitor.
[2020-07-24] MEDS ORDERED: Nitroglycerin Subl 0.4mg tab SL PRN (22:45)
[2020-07-25] VITALS (7 sets, daily range): BP systolic 134–183; BP diastolic 49–59
[2020-07-25] MEDS ORDERED: HydrALAZINE 25mg tab ORAL PRN (01:00)
--- NOTE | 2020-07-25 03:29 | Consultation ---
DATE OF CONSULTATION: 07/24/2020 CARDIOLOGY CONSULTATION CONSULTING PHYSICIAN: Nir Gracia M.D. REQUESTING PHYSICIAN: Swapnil Guerra M.D. REASON: For evaluation of chest pain. HISTORY OF PRESENT ILLNESS: This is an 85-year-old female with a history of hypertension. She has had dizziness and chest discomfort for 1 day's duration. She has not had any shortness of breath, cough, or upper respiratory symptoms. She has been increasingly fatigued however. The patient was seen in the emergency room. A V/Q scan revealed no signs of perfusion defects. Her EKG reveals sinus rhythm with nonspecific ST-T changes. The patient had a chest x-ray that revealed mild interstitial prominence. Further workup in the emergency room was notable for an elevated natriuretic peptide assay of over 1800. Her troponin was negative, but her blood pressure parameters were up to 190 systolic and she was given therapy with nitroglycerin, aspirin, and Vasotec. MEDICATIONS: Prior to admission, reviewed. ALLERGIES: None. PAST MEDICAL HISTORY: Hypertension, diabetes mellitus, osteoarthritis, hypothyroidism. FAMILY HISTORY: Not known. SOCIAL HISTORY: Negative for smoking, alcohol, or substance abuse. REVIEW OF SYSTEMS: A 10-point review of systems performed. All negative other than noted above. PHYSICAL EXAMINATION: VITAL SIGNS: Blood pressure 140/44, pulse 78, respirations 15, afebrile. No respiratory distress or accessory muscle use. NECK: Jugular venous pressure normal. LUNGS: With clear breath sounds. CARDIAC: Regular rhythm and rate. Normal S1, S2 with a 1/6 systolic murmur at apex. ABDOMEN: Soft, nontender. EXTREMITIES: Trace dependent edema. LABORATORY DATA: White count 7.2, hemoglobin 10.5. Sodium 132, potassium 4.6, bicarb 22, BUN 15, creatinine 0.9. Lactic acid was normal. Troponin 0. Pro-natriuretic peptide 1876. Urinalysis with 5 to 10 white cells. IMPRESSION: 1. Hypertensive urgency. 2. Dizziness, rule out arrhythmia. 3. Acute diastolic congestive heart failure. 4. Urinary tract infection. PLAN: 1. Imaging of the brain. 2. Cardiac monitoring. 3. Diuresis. 4. Titration of anti-failure regimen. 5. Echocardiogram to assess left ventricular systolic function. 6. DVT prophylaxis. 7. Antiplatelet therapy. 8. Further recommendations will follow. Nir Caleb Gracia DR: JOCELYNE JOB#: [id number] CC:
[2020-07-25] MEDS: HydrALAZINE 25mg tab ORAL PRN ×2 (06:01→11:53)
[2020-07-25] MEDS: NovoLOG Insulin Flexpen SUBQ SCH ×4 (06:30→21:00)
--- NOTE | 2020-07-25 07:13 | NUR ---
NURSE HAND-OFF REPORT: Important Events on Shift:Admission, No chest pain. Patient Status: [stable] Diet: [cardiac diet] Pending Orders: [2D-echo] Pending Results/Labs:[] Pending MD notification:[] Latest Vital Signs: Temperature 97.9 , Pulse 61 , B/P 158 /51 , Respiratory Rate 16 , O2 SAT 96 , Room Air, O2 Flow Rate . Vital Sign Comment: [] EKG Rhythm: Sinus Rhythm Rhythm change?: N MD Notified?: - MD Response: Latest Drake Fall Score: 35 Fall Risk: Medium Risk Safety Measures: Call light Within Reach, Bed Alarm Zone 1, Side Rails Side Rails x3, Bed position Low and Locked. Fall Precautions: Yellow Socks Door Sign Patient Fall Education Report given to ROBERT Zapata. Round is done.
--- NOTE | 2020-07-25 07:25 | NUR ---
NURSE NOTES: Patient received from BERENICE Quiroga. Patient A/A/Ox4 in bed with HOB elevated. ambulates with assistance. korean speaking but able to follow simple commands. PIV patent and intact 20G right AC SL. On RA with SO2 >93%. No s/s of pain and no s/s of respiratory distress noted. Bed in lowest position and locked. Bed alarm activated and lock engaged @ all times. will cont to monitor.
--- NOTE | 2020-07-25 08:13 | NUR ---
CASE MANAGEMENT:REVIEW 85 YR OLD FEMALE WALKED INTO ER CC: CHEST PAIN, ELEVATED BLOOD PRESSURE AND DIZZINESS SI: UTI. AC/CHR CHF 98.0 65 12 193/42 100% ON RA H/H-10.5/32.5 NA-132 GLUCOSE+137 BNP+1876 IS: IV VASOTEC X1 IV ROCEPHIN X1 ASA PO X1 NITRO 1" X1 CT HEAD BLOOD/URINE CULTURE CHEST XRAY : TO TELEMETRY DCP: FROM HOME
[2020-07-25 08:30] LABS: BASOPHILS % (AUTO) 0.6 % (0.0-2.0); HEMATOCRIT 31.8 % (37.0-47.0); HEMOGLOBIN 10.3 G/DL (12.0-16.0); LYMPHOCYTES % (AUTO) 20.8 % (20.0-45.0); MEAN CORPUSCULAR VOLUME 93 FL (80-99); MONOCYTES % (AUTO) 5.5 % (1.0-10.0); PLATELET COUNT 222 K/UL (150-450); RED BLOOD COUNT 3.42 M/UL (4.20-5.40); RED CELL DISTRIBUTION WIDTH 12.9 % (11.6-14.8); WHITE BLOOD COUNT 6.7 K/UL (4.8-10.8)
[2020-07-25] MEDS ORDERED: Aspirin Baby 81mg ORAL SCH (09:00)
[2020-07-25 09:03] LABS: POTASSIUM 4.5 MMOL/L (3.5-5.1)
[2020-07-25 10:06] LABS: PHOSPHORUS 3.7 MG/DL (2.5-4.9)
--- NOTE | 2020-07-25 10:14 | Pulmonology Progress Note ---
Subjective ROS Limited/Unobtainable: No Interval Events: none major reported per nursing HEENT: Repors: no symptoms Respiratory: Reports: no symptoms Cardiovascular: Reports: no symptoms Gastrointestinal/Abdominal: Reports: no symptoms Allergies: Coded Allergies: NO KNOWN ALLERGIES (Unverified Allergy, Unknown, 02/06/15) Objective Last 24 Hour Vital Signs Date Time Temp Pulse Resp B/P (MAP) Pulse Ox O2 Delivery O2 Flow Rate FiO2 07/25/20 07:50 97.7 74 18 159/49 (85) 97 07/25/20 06:01 158/51 07/25/20 04:00 61 07/25/20 04:00 97.9 61 16 158/51 (86) 96 07/25/20 00:00 62 07/25/20 00:00 98.0 70 16 146/58 (87) 98 07/24/20 21:00 Room Air 07/24/20 20:00 98.2 68 16 158/54 (88) 98 07/24/20 20:00 68 07/24/20 19:45 Room Air 07/24/20 18:40 98.2 79 15 132/70 99 Room Air 07/24/20 15:30 98.6 86 18 100/69 98 Room Air 07/24/20 13:44 98.2 78 15 141/44 100 Room Air 07/24/20 12:18 188/38 07/24/20 11:44 98.3 65 16 143/42 99 Room Air 07/24/20 11:34 166/50 Intake and Output 07/24/20 07/25/20 19:00 07:00 Intake Total 240 ml Balance 240 ml Other 240 ml # Voids 1 2 # Bowel Movements 2 General Appearance: no acute distress HEENT: atraumatic Respiratory: lungs clear Cardiovascular: normal rate, regular rhythm Abdomen: soft, non tender Microbiology Date/Time Source Procedure Growth Status 07/24/20 11:00 Nasopharynx SARS-CoV-2 RdRp Gene Assay - Final Complete 07/24/20 09:15 Urine,Clean Catch Urine Culture - Preliminary NO GROWTH Resulted Laboratory Tests 07/25/20 07:47: White Blood Count 6.7, Red Blood Count 3.42L, Hemoglobin 10.3L, Hematocrit 31.8L , Mean Corpuscular Volume 93, Mean Corpuscular Hemoglobin 30.1, Mean Corpuscular Hemoglobin Concent 32.4, Red Cell Distribution Width 12.9, Platelet Count 222, Mean Platelet Volume 8.0, Neutrophils (%) (Auto) 70.0, Lymphocytes (%) (Auto) 20.8, Monocytes (%) (Auto) 5.5, Eosinophils (%) (Auto) 3.0, Basophils (%) (Auto) 0.6, Sodium Level 134L, Potassium Level 4.5, Chloride Level 102, Carbon Dioxide Level 24, Anion Gap 8, Blood Urea Nitrogen 17, Creatinine 1.0, Estimat Glomerular Filtration Rate 52.7, Glucose Level 127H, Calcium Level 9.0, Phosphorus Level [Pending], Magnesium Level [Pending], Troponin I 0.007 Current Medications Medications (Trade) Dose Ordered Sig/Yelena Route PRN Reason Start Time Stop Time Status Last Admin Dose Admin Acetaminophen (Tylenol) 650 mg Q6H PRN ORAL FEVER 07/24/20 22:45 08/23/20 22:44 Acetaminophen (Tylenol) 650 mg Q6H PRN ORAL Mild Pain (Pain Scale 1-3) 07/24/20 22:45 08/23/20 22:44 Aspirin (ASA) 81 mg DAILY ORAL 07/25/20 09:00 09/08/20 08:59 07/25/20 08:15 Aspirin (Ecotrin) 81 mg DAILY ORAL 07/26/20 09:00 09/09/20 08:59 UNV Atorvastatin Calcium (Lipitor) 80 mg BEDTIME ORAL 07/25/20 21:00 10/23/20 20:59 Carvedilol (Coreg) 25 mg EVERY 12 HOURS ORAL 07/25/20 21:00 08/24/20 20:59 UNV Ceftriaxone Sodium 1 gm/ Sodium Chloride 55 ml @ 110 mls/hr Q24H IVPB 07/25/20 10:00 07/29/20 23:00 Chlorhexidine Gluconate (Michelle-Hex 2%) 1 applic DAILY@2000 TOPIC 07/25/20 20:00 10/23/20 19:59 Dextrose (Dextrose 50%) 25 ml Q30M PRN IV Hypoglycemia 07/24/20 16:15 10/22/20 16:14 Dextrose (Dextrose 50%) 50 ml Q30M PRN IV Hypoglycemia 07/24/20 16:15 10/22/20 16:14 Furosemide (Lasix) 20 mg DAILY IV 07/25/20 09:00 08/24/20 08:59 Hydralazine HCl (Apresoline) 25 mg Q4HR PRN ORAL For High Blood Pressure 07/24/20 23:00 10/23/20 00:59 07/25/20 06:01 Insulin Aspart (NovoLOG) BEFORE MEALS AND HS SUBQ 07/24/20 16:30 10/22/20 16:29 Levothyroxine Sodium (Synthroid) 75 mcg DAILY ORAL 07/26/20 09:00 08/25/20 08:59 UNV Levothyroxine Sodium (Synthroid) 75 mcg DAILY@0630 ORAL 07/25/20 06:30 08/24/20 06:29 07/25/20 06:01 Meclizine HCl (Antivert) 25 mg THREE TIMES A DAY ORAL 07/25/20 13:00 08/24/20 12:59 UNV Nitroglycerin (Ntg) 0.4 mg Q5M PRN SL Prn Chest Pain 07/24/20 22:45 08/23/20 22:44 Ondansetron HCl (Zofran) 4 mg Q4HR PRN IVP Nausea & Vomiting 07/24/20 22:45 08/23/20 22:44 Assessment/Plan Assessment/Plan 1. Diabetes mellitus with hyperglycemia - Monitor BG - Insulin 2. Transaminitis - trend AST, ALT 3. Elevated BNP -We will get cardio consult - will need 2D Echo - We will add lasix 4. Hyponatremia - IVF We will continue home medications The care for this patient was discussed with my supervising physician. Time spent for this case was approximately 31 minutes. Suman Roldan Jul 25, 2020 10:14
[2020-07-25] MEDS: cefTRIAXone 1 GM in NS 55 ML IVPB SCH (10:21)
[2020-07-25] MEDS ORDERED: CARVEDILOL3.125 MG ORAL (12:53)
[2020-07-25] MEDS: Meclizine 25mg tab ORAL SCH ×2 (13:13→17:13)
--- NOTE | 2020-07-25 14:29 | Cardiology Progress Note ---
Subjective DATE OF SERVICE: Jul 25, 2020 Withdrawn and somnolent No SOB 2D Echo: normal LVEF 65%, Mod aortic stenosis (0.8cm2), Mod MR/TR Objective Last 24 Hour Vital Signs Date Time Temp Pulse Resp B/P (MAP) Pulse Ox O2 Delivery O2 Flow Rate FiO2 07/25/20 13:14 88 138/55 (82) 07/25/20 11:59 96.0 70 18 183/55 (97) 96 07/25/20 11:53 183/55 07/25/20 07:50 97.7 74 18 159/49 (85) 97 07/25/20 06:01 158/51 07/25/20 04:00 61 07/25/20 04:00 97.9 61 16 158/51 (86) 96 07/25/20 00:00 62 07/25/20 00:00 98.0 70 16 146/58 (87) 98 07/24/20 21:00 Room Air 07/24/20 20:00 98.2 68 16 158/54 (88) 98 07/24/20 20:00 68 07/24/20 19:45 Room Air 07/24/20 18:40 98.2 79 15 132/70 99 Room Air 07/24/20 15:30 98.6 86 18 100/69 98 Room Air HEENT: normal ENT inspection RHYTHM: NSR LUNGS: diminished breath sounds CARDIAC: normal rate, regular rhythm, normal S1 and S2, systolic murmur - 2/6 systolic murmur at base ABDOMEN: normal bowel sounds, soft, no organomegaly EXTREMITIES: trace edema Laboratory Tests Test 07/25/20 07:47 07/25/20 11:37 White Blood Count 6.7 K/UL (4.8-10.8) Red Blood Count 3.42 M/UL (4.20-5.40) L Hemoglobin 10.3 G/DL (12.0-16.0) L Hematocrit 31.8 % (37.0-47.0) L Mean Corpuscular Volume 93 FL (80-99) Mean Corpuscular Hemoglobin 30.1 PG (27.0-31.0) Mean Corpuscular Hemoglobin Concent 32.4 G/DL (32.0-36.0) Red Cell Distribution Width 12.9 % (11.6-14.8) Platelet Count 222 K/UL (150-450) Mean Platelet Volume 8.0 FL (6.5-10.1) Neutrophils (%) (Auto) 70.0 % (45.0-75.0) Lymphocytes (%) (Auto) 20.8 % (20.0-45.0) Monocytes (%) (Auto) 5.5 % (1.0-10.0) Eosinophils (%) (Auto) 3.0 % (0.0-3.0) Basophils (%) (Auto) 0.6 % (0.0-2.0) Sodium Level 134 MMOL/L (136-145) L Potassium Level 4.5 MMOL/L (3.5-5.1) Chloride Level 102 MMOL/L (98-107) Carbon Dioxide Level 24 MMOL/L (21-32) Anion Gap 8 mmol/L (5-15) Blood Urea Nitrogen 17 mg/dL (7-18) Creatinine 1.0 MG/DL (0.55-1.30) Estimat Glomerular Filtration Rate 52.7 mL/min (>60) Glucose Level 127 MG/DL (74-106) H Calcium Level 9.0 MG/DL (8.5-10.1) Phosphorus Level 3.7 MG/DL (2.5-4.9) Magnesium Level 2.0 MG/DL (1.8-2.4) Troponin I 0.007 ng/mL (0.000-0.056) POC Whole Blood Glucose 105 MG/DL (74-106) Microbiology Date/Time Source Procedure Growth Status 07/24/20 11:00 Nasopharynx SARS-CoV-2 RdRp Gene Assay - Final Complete 07/24/20 09:15 Urine,Clean Catch Urine Culture - Preliminary NO GROWTH Resulted Assessment/Plan Assessment/Plan DM uncontrolled Acute diastolic CHF, now clinically compensated Hypertension/HHD with rising BP trend 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 Check CXR Hold additional diuretic rx Titrate antiHTN regimen Insulin titration Cardiac monitoring Nir Gracia MD Jul 25, 2020 14:29
--- NOTE | 2020-07-25 19:25 | NUR ---
NURSE HAND-OFF REPORT: Important Events on Shift:[b/p monitored] Patient Status: [stable] Diet: [cardiac] Pending Orders: [labs; cxr] Pending Results/Labs:[am] Pending MD notification:[] Latest Vital Signs: Temperature 98.1 , Pulse 75 , B/P 145 /50 , Respiratory Rate 18 , O2 SAT 95 , Room Air, O2 Flow Rate . Vital Sign Comment: [] EKG Rhythm: Sinus Rhythm Rhythm change?: N MD Notified?: - MD Response: Latest Drake Fall Score: 35 Fall Risk: Medium Risk Safety Measures: Call light Within Reach, Bed Alarm Zone 1, Side Rails Side Rails x2, Bed position Low and Locked. Fall Precautions: Yellow Socks Door Sign Patient Fall Education Report given to [estela].
[2020-07-25] MEDS ORDERED: Dyna-Hex 2% Top Sol 2oz TOPIC SCH (20:00)
--- NOTE | 2020-07-25 20:00 | NUR ---
NURSE NOTES: RECEIVED PATIENT LYING IN BED, AWAKE, ALERT/ORIENTED X4, ARABIC SPEAKING, DENIES PAIN, NO SIGNS AND SYMPTOMS OF ACUTE CARDIO RESPIRATORY DISTRESS/SHORTNESS OF BREATH, DENIES CHEST PAIN, NO PERIPHERAL EDEMA NOTED, SINUS RHYTHM ON RAILWAY SIGNAL TECHNICIAN, 65 BPM, LUNGS CLEAR TO AUSCULTATION. IV INTACT TO RIGHT AC/GAUGE 20, SALINE LOCK, NO REDNESS/SWELLING NOTED. DENIES GI DISCOMFORT, NO N/V/D, CONTINENT OF B/B, REQUIRE ASSISTANCE DUE TO SECONDARY DIAGNOSIS OF DIZZINESS. SIDE RAILS UP X3, BED IN LOWEST POSITION FOR SAFETY, ENCOURAGED PATIENT TO UTILIZE CALL LIGHT FOR ASSISTANCE, BED ALARM ACTIVATED FOR SAFETY. CONTINUE WITH CURRENT PLAN OF CARE. NAD.
[2020-07-25] MEDS ORDERED: Atorvastatin 80mg tab ORAL SCH (21:00)
[2020-07-25] MEDS: Carvedilol 25mg Tab ORAL SCH (21:08)
[2020-07-26] VITALS: BP 139/56
--- NOTE | 2020-07-26 03:44 | NUR ---
NURSE HAND-OFF REPORT: Important Events on Shift:[UNEVENTFUL NIGHT, RESTED WELL, ASSISTED TO BATHROOM PRN] Patient Status: [STABLE] Diet: [REGULAR] Pending Orders: [CHEST X RAY 2 VIEWS , AM LABS 07/26 AND 07/27] Pending Results/Labs:[] Pending MD notification:[] Latest Vital Signs: Temperature 98.9 , Pulse 81 , B/P 139 /56 , Respiratory Rate 18 , O2 SAT 96 , Room Air, O2 Flow Rate . Vital Sign Comment: [STABLE, AFEBRILE] EKG Rhythm: Sinus Bradycardia Rhythm change?: N MD Notified?: - MD Response: Latest Drake Fall Score: 35 Fall Risk: Medium Risk Safety Measures: Call light Within Reach, Bed Alarm Zone 1, Side Rails Side Rails x2, Bed position Low and Locked. Fall Precautions: Yellow Socks Door Sign Patient Fall Education Report given to [BERENICE PERRY].
--- NOTE | 2020-07-26 03:48 | NUR ---
NURSE NOTES: Received report from BERENICE Morales. Patient in bed resting at this time. No signs of distress. IV intact and patent. Bed locked and in lowest position. Call light in reach. Bed alarm on. Will continue plan of care.
[2020-07-26 04:00] VITALS: BP 144/58
[2020-07-26] MEDS: NovoLOG Insulin Flexpen SUBQ SCH (05:42)
--- NOTE | 2020-07-26 06:46 | NUR ---
NURSE HAND-OFF REPORT: Important Events on Shift: No acute events Patient Status: Stable Diet: Cardiac Pending Orders: CXR for 07/26/20 Pending Results/Labs: BNP, BMP, CBC, Phos, Mag Pending MD notification: N/A Latest Vital Signs: Temperature 98.0 , Pulse 75 , B/P 144 /58 , Respiratory Rate 18 , O2 SAT 97 , Room Air, O2 Flow Rate . Vital Sign Comment: N/A EKG Rhythm: Sinus Bradycardia Rhythm change?: N MD Notified?: - MD Response: Latest Drake Fall Score: 35 Fall Risk: Medium Risk Safety Measures: Call light Within Reach, Bed Alarm Zone 1, Side Rails Side Rails x2, Bed position Low and Locked. Fall Precautions: Yellow Socks Door Sign Patient Fall Education Addendum: 07/26/20 at 0658 by VICKY CAUSEY RN Report given to ROBERT Zapata
--- NOTE | 2020-07-26 07:40 | NUR ---
NURSE NOTES: RECEIVED REPORT FROM BERENICE PERRY. RECEIVED PATIENT LYING IN BED WITH HOB ELEVATED. AWAKE, ALERT/ORIENTED X4, [place] SPEAKING, ABLE TO FOLLOW SIMPLE INSTRUCTIONS AND ABLE TO VERBALIZE NEEDS. DENIES PAIN OR DISCOMFORT. NO SIGNS AND SYMPTOMS OF ACUTE CARDIO- RESPIRATORY DISTRESS/SHORTNESS OF BREATH, DENIES CHEST PAIN, NO PERIPHERAL EDEMA NOTED, PIV PATENT AND INTACT TO RIGHT AC/GAUGE 20, SALINE LOCK, NO REDNESS/SWELLING NOTED. DENIES GI DISCOMFORT, NO N/V/D, CONTINENT OF B/B, REQUIRING ASSISTANCE DUE TO SECONDARY DIAGNOSIS OF DIZZINESS. SIDERAILS UP X3, BED IN LOWEST POSITION FOR SAFETY, ENCOURAGED PATIENT TO UTILIZE CALL LIGHT FOR ASSISTANCE, BED ALARM ACTIVATED FOR SAFETY. CONTINUE WITH CURRENT PLAN OF CARE.
[2020-07-26 07:58] VITALS: BP 107/58
[2020-07-26 08:05] VITALS: BP 107/58
[2020-07-26] MEDS: Meclizine 25mg tab ORAL SCH (08:05)
[2020-07-26] MEDS: Carvedilol 25mg Tab ORAL SCH (08:05)
[2020-07-26 08:39] LABS: EOSINOPHILS % (AUTO) 5.6 % (0.0-3.0); HEMATOCRIT 33.4 % (37.0-47.0); HEMOGLOBIN 10.9 G/DL (12.0-16.0); LYMPHOCYTES % (AUTO) 21.9 % (20.0-45.0); MEAN CORPUSCULAR VOLUME 93 FL (80-99); MONOCYTES % (AUTO) 6.1 % (1.0-10.0); NEUTROPHILS % (AUTO) 65.4 % (45.0-75.0); PLATELET COUNT 229 K/UL (150-450); RED CELL DISTRIBUTION WIDTH 12.8 % (11.6-14.8); WHITE BLOOD COUNT 5.8 K/UL (4.8-10.8)
--- NOTE | 2020-07-26 08:52 | Pulmonology Progress Note ---
Subjective ROS Limited/Unobtainable: No Interval Events: none major reported per nursing HEENT: Repors: no symptoms Respiratory: Reports: no symptoms Cardiovascular: Reports: no symptoms Gastrointestinal/Abdominal: Reports: no symptoms Allergies: Coded Allergies: NO KNOWN ALLERGIES (Unverified Allergy, Unknown, 02/06/15) Objective Last 24 Hour Vital Signs Date Time Temp Pulse Resp B/P (MAP) Pulse Ox O2 Delivery O2 Flow Rate FiO2 07/26/20 08:05 63 107/58 07/26/20 07:58 96.9 63 18 107/58 (74) 95 07/26/20 04:00 98.0 75 18 144/58 (86) 97 07/26/20 03:34 58 07/26/20 00:00 59 07/26/20 00:00 98.9 81 18 139/56 (83) 96 07/25/20 21:08 79 139/57 07/25/20 21:00 Room Air 07/25/20 20:00 78 07/25/20 20:00 98.7 77 18 134/59 (84) 97 07/25/20 15:51 98.1 75 18 145/50 (81) 95 07/25/20 13:14 88 138/55 (82) 07/25/20 12:00 69 07/25/20 11:59 96.0 70 18 183/55 (97) 96 07/25/20 11:53 183/55 Intake and Output 07/25/20 07/26/20 19:00 07:00 Intake Total 470 ml 120 ml Balance 470 ml 120 ml Intake Oral 360 ml 120 ml IV Total 110 ml # Voids 7 3 General Appearance: no acute distress HEENT: atraumatic Respiratory: lungs clear Cardiovascular: normal rate, regular rhythm Abdomen: soft, non tender Microbiology Date/Time Source Procedure Growth Status 07/24/20 11:00 Nasopharynx SARS-CoV-2 RdRp Gene Assay - Final Complete 07/24/20 09:45 Blood Blood Culture - Preliminary NO GROWTH AFTER 24 HOURS Resulted 07/24/20 09:30 Blood Blood Culture - Preliminary NO GROWTH AFTER 24 HOURS Resulted 07/24/20 09:15 Urine,Clean Catch Urine Culture - Preliminary NO GROWTH Resulted Laboratory Tests 07/25/20 11:37: POC Whole Blood Glucose 105 07/25/20 16:15: POC Whole Blood Glucose 102 07/25/20 21:12: POC Whole Blood Glucose [Pending] 07/26/20 05:41: POC Whole Blood Glucose 100 07/26/20 07:38: White Blood Count 5.8, Red Blood Count 3.60L, Hemoglobin 10.9L, Hematocrit 33.4L , Mean Corpuscular Volume 93, Mean Corpuscular Hemoglobin 30.2, Mean Corpuscular Hemoglobin Concent 32.5, Red Cell Distribution Width 12.8, Platelet Count 229, Mean Platelet Volume 7.4, Neutrophils (%) (Auto) 65.4, Lymphocytes (%) (Auto) 21.9, Monocytes (%) (Auto) 6.1, Eosinophils (%) (Auto) 5.6H, Basophils (%) (Auto) 1.0, Sodium Level [Pending], Potassium Level [Pending], Chloride Level [Pending], Carbon Dioxide Level [Pending], Blood Urea Nitrogen [Pending], Creatinine [Pending], Estimat Glomerular Filtration Rate [Pending], Glucose Level [Pending], Calcium Level [Pending], Phosphorus Level [Pending], Magnesium Level [Pending], Pro-B-Type Natriuretic Peptide [Pending] Current Medications Medications (Trade) Dose Ordered Sig/Yelena Route PRN Reason Start Time Stop Time Status Last Admin Dose Admin Acetaminophen (Tylenol) 650 mg Q6H PRN ORAL FEVER 07/24/20 22:45 08/23/20 22:44 Acetaminophen (Tylenol) 650 mg Q6H PRN ORAL Mild Pain (Pain Scale 1-3) 07/24/20 22:45 08/23/20 22:44 Atorvastatin Calcium (Lipitor) 80 mg BEDTIME ORAL 07/25/20 21:00 10/23/20 20:59 07/25/20 21:09 Carvedilol (Coreg) 25 mg EVERY 12 HOURS ORAL 07/25/20 21:00 08/24/20 20:59 07/25/20 21:08 Ceftriaxone Sodium 1 gm/ Sodium Chloride 55 ml @ 110 mls/hr Q24H IVPB 07/25/20 10:00 07/29/20 23:00 07/25/20 10:21 Chlorhexidine Gluconate (Michelle-Hex 2%) 1 applic DAILY@2000 TOPIC 07/25/20 20:00 10/23/20 19:59 07/25/20 21:05 Dextrose (Dextrose 50%) 25 ml Q30M PRN IV Hypoglycemia 07/24/20 16:15 10/22/20 16:14 Dextrose (Dextrose 50%) 50 ml Q30M PRN IV Hypoglycemia 07/24/20 16:15 10/22/20 16:14 Hydralazine HCl (Apresoline) 25 mg Q4HR PRN ORAL For High Blood Pressure 07/24/20 23:00 10/23/20 00:59 07/25/20 11:53 Insulin Aspart (NovoLOG) BEFORE MEALS AND HS SUBQ 07/24/20 16:30 10/22/20 16:29 Levothyroxine Sodium (Synthroid) 75 mcg DAILY@0630 ORAL 07/25/20 06:30 08/24/20 06:29 07/26/20 05:39 Meclizine HCl (Antivert) 25 mg THREE TIMES A DAY ORAL 07/25/20 13:00 08/24/20 12:59 07/26/20 08:05 Nitroglycerin (Ntg) 0.4 mg Q5M PRN SL Prn Chest Pain 07/24/20 22:45 08/23/20 22:44 Ondansetron HCl (Zofran) 4 mg Q4HR PRN IVP Nausea & Vomiting 07/24/20 22:45 08/23/20 22:44 Assessment/Plan Assessment/Plan 1. Diabetes mellitus with hyperglycemia - Monitor BG - Insulin sliding scale 2. Transaminitis - trend AST, ALT 3. Elevated BNP -Seen by cardiology - Results of 2D Echo noted; has as well as MR/TR - Received lasix Feeling better Will dc home Outpt cardiac eval for TAVR vs AVR Swapnil Guerra MD Jul 26, 2020 08:52
[2020-07-26] MEDS ORDERED: LIPITOR80 MG ORAL (08:54)
[2020-07-26] MEDS ORDERED: COREG25 MG ORAL (08:54)
[2020-07-26] MEDS ORDERED: LEVOTHYROXINE75 MCG ORAL (08:54)
[2020-07-26] MEDS ORDERED: FUROSEMIDE20 M1 ORAL (08:54)
[2020-07-26] MEDS ORDERED: Aspirin EC 81mg tab ORAL SCH (09:00)
[2020-07-26 09:08] LABS: CALCIUM 9.3 MG/DL (8.5-10.1); PHOSPHORUS 3.5 MG/DL (2.5-4.9); POTASSIUM 4.2 MMOL/L (3.5-5.1)
[2020-07-26] MEDS: cefTRIAXone 1 GM in NS 55 ML IVPB SCH (09:22)
--- NOTE | 2020-07-26 09:39 | Diagnostic Imaging Report ---
EXAM: XR Chest, 2 Views CLINICAL HISTORY: ABN CHST TECHNIQUE: Frontal and lateral views of the chest. COMPARISON: No relevant prior studies available. FINDINGS/IMPRESSION: No focal consolidation, pleural effusion, or pneumothorax. Mild cardiomegaly. Calcified aorta and tracheobronchial tree.
--- NOTE | 2020-07-26 10:15 | NUR ---
NURSE NOTES: PATIENT IS FOR DISCHARGE HOME WITH INSTRUCTIONS. CALLED SON, ALLYSON TO INFORM FOR DISCHARGE AND TO PROVIDE TRANSPORTATION. VERIFIED HOME ADDRESS. RX ATTACHED. WILL CONT TO MONITOR.
--- NOTE | 2020-07-26 10:28 | NUR ---
RADIOLOGY DEPT., CHEST X-RAY DONE.-P.DYE
--- NOTE | 2020-07-26 11:20 | NUR ---
NURSE NOTES: DISCHARGED D/C HOME WITH INSTRUCTIONS AND RX. REMOVED WELL SERVICE FLOORPERSON AND IV ACCESS. IN STABLE CONDITION. VERBALIZED UNDERSTANDING. INSTRUCTIONS GIVEN TO THE SON, ALLYSON. PERSONAL BELONGINGS REVIEWED AND NOTED. VERIFIED HOME ADDRESS.
--- NOTE | 2020-07-26 23:05 | Cardiology Progress Note ---
Subjective DATE OF SERVICE: Jul 26, 2020 More alert and interactive Covid swab negative No SOB 2D Echo: normal LVEF 65%, Mod aortic stenosis (0.8cm2), Mod MR/TR Objective Last 24 Hour Vital Signs Date Time Temp Pulse Resp B/P (MAP) Pulse Ox O2 Delivery O2 Flow Rate FiO2 07/26/20 09:27 Room Air 07/26/20 08:05 63 107/58 07/26/20 08:00 63 07/26/20 07:58 96.9 63 18 107/58 (74) 95 07/26/20 04:00 98.0 75 18 144/58 (86) 97 07/26/20 03:34 58 07/26/20 00:00 59 07/26/20 00:00 98.9 81 18 139/56 (83) 96 HEENT: normal ENT inspection RHYTHM: NSR LUNGS: diminished breath sounds CARDIAC: normal rate, regular rhythm, normal S1 and S2, systolic murmur - 2/6 systolic murmur at base ABDOMEN: normal bowel sounds, soft, no organomegaly EXTREMITIES: trace edema Laboratory Tests Test 07/26/20 05:41 07/26/20 07:38 POC Whole Blood Glucose 100 MG/DL (74-106) White Blood Count 5.8 K/UL (4.8-10.8) Red Blood Count 3.60 M/UL (4.20-5.40) L Hemoglobin 10.9 G/DL (12.0-16.0) L Hematocrit 33.4 % (37.0-47.0) L Mean Corpuscular Volume 93 FL (80-99) Mean Corpuscular Hemoglobin 30.2 PG (27.0-31.0) Mean Corpuscular Hemoglobin Concent 32.5 G/DL (32.0-36.0) Red Cell Distribution Width 12.8 % (11.6-14.8) Platelet Count 229 K/UL (150-450) Mean Platelet Volume 7.4 FL (6.5-10.1) Neutrophils (%) (Auto) 65.4 % (45.0-75.0) Lymphocytes (%) (Auto) 21.9 % (20.0-45.0) Monocytes (%) (Auto) 6.1 % (1.0-10.0) Eosinophils (%) (Auto) 5.6 % (0.0-3.0) H Basophils (%) (Auto) 1.0 % (0.0-2.0) Sodium Level 135 MMOL/L (136-145) L Potassium Level 4.2 MMOL/L (3.5-5.1) Chloride Level 102 MMOL/L (98-107) Carbon Dioxide Level 23 MMOL/L (21-32) Anion Gap 10 mmol/L (5-15) Blood Urea Nitrogen 16 mg/dL (7-18) Creatinine 1.0 MG/DL (0.55-1.30) Estimat Glomerular Filtration Rate 52.7 mL/min (>60) Glucose Level 159 MG/DL (74-106) H Calcium Level 9.3 MG/DL (8.5-10.1) Phosphorus Level 3.5 MG/DL (2.5-4.9) Magnesium Level 1.8 MG/DL (1.8-2.4) Pro-B-Type Natriuretic Peptide 1475 pg/mL (0-125) H Microbiology Date/Time Source Procedure Growth Status 07/24/20 11:00 Nasopharynx SARS-CoV-2 RdRp Gene Assay - Final Complete 07/24/20 09:45 Blood Blood Culture - Preliminary NO GROWTH AFTER 24 HOURS Resulted 07/24/20 09:30 Blood Blood Culture - Preliminary NO GROWTH AFTER 24 HOURS Resulted 07/24/20 09:15 Urine,Clean Catch Urine Culture - Final NO GROWTH AFTER 48 HOURS Complete Assessment/Plan Assessment/Plan DM uncontrolled Acute diastolic CHF, now clinically compensated Hypertension/HHD with rising BP trend 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 Check CXR Hold additional diuretic rx Maintain current antiHTN regimen and insuling rx Stable for outpatient management from cardiovascular standpoint Nir Gracia MD Jul 26, 2020 23:05
--- NOTE | 2020-07-29 16:17 | Discharge Summary ---
Discharge Summary Discharge Summary _ Date of admission: 07/24/2020 Date of discharge: 07/26/[address] Guerra History of Present Illness and Brief Hospital Course Ms. Hopkins is an 85-year-old female with past medical history of hypertension, and diabetes mellitus, who presented to the ED for evaluation of worsening dizzi ness and chest discomfort x1 day. Of note, previous nuclear testing showed no radiographic perfusion defects. Previous MRI of the brain showed nonspecific changes without evidence of CVA. Her EKG reveald normal sinus rhythm without acute ST or T wave changes. Chest x-ray showed vascular/interstitial prominence which may have been artifacts. Chest x-ray was clear from dense consolidation, pleural effusion, or pneumothorax. Patient tested negative for COVID-19 in the ER via rapid gene assay. Her head CT revealed no evidence for acute intracranial hemorrhage, mass-effect or cortical edema. Initial laboratory studies were remarkable for negative troponin and elevated BNP. Patient initially presented with systolic blood pressure of 190s, which was later brought down to 140s. Patient was given aspirin, nitroglycerin, Vasotec, and Rocephin in the ER and was admitted to the hospital for further management. Given her elevated BNP, she received Lasix and was evaluated by a title assistant. 2D echocardiogram was notable for aortic stenosis as well as mitral regurgitation/tricuspid valve regurgitation. Her ejection fraction was estimated to be 65% on echocardiogram. By admission day 2, patient reported feeling better and was medically stable for discharge. She is to have a cardiac evaluation for TAVR versus AVR as an outpatient. Patient was discharged home on 07/26/2020 in stable condition. Consultants: Cardiology Dr. Gracia Discharge Condition Improved and stable Final diagnoses Hypertensive urgency Dizziness Acute diastolic congestive heart failure Urinary tract infection Aortic stenosis Mitral regurgitation Tricuspid regurgitation I have been assigned to dictate discharge summary for this account. Suman Roldan Jul 29, 2020 16:17
== END 2020-07-26 11:19 | disposition home or self-care (01) | DRG 304 ==
LOC: EMR 09:23 → EDBEDREQ 12:14 → 2E 14:26 → EDBEDREQ 18:01 → 2E 07-25 05:24
DX: I16.0 Hypertensive urgency (principal); I50.33 Acute on chronic diastolic (congestive) heart failure; E87.1 Hypo-osmolality and hyponatremia; N39.0 Urinary tract infection, site not specified; E11.65 Type 2 diabetes mellitus with hyperglycemia; I11.0 Hypertensive heart disease with heart failure; Z79.82 Long term (current) use of aspirin; I35.0 Nonrheumatic aortic (valve) stenosis; I34.0 Nonrheumatic mitral (valve) insufficiency; I36.1 Nonrheumatic tricuspid (valve) insufficiency
CPT/HCPCS: 36415; 70450; 71045; 80048; 80053; 81003; 82962; 83605; 83735; 83880; 84100; 84484; 85025; 85610; 85730; 86140; 87040; 87086; 93005; 93306; 96365; 96375; 99285; J1815; J7030; U0002